=== PATIENT | male | born 1950 | race Caucasian/White ===

== ENCOUNTER 2018-01-08 07:50 | Emergency (ER) | payer BC ==
[~2018-01-08] VITALS: Ht 175.3 cm; Wt 83.9 kg
[2018-01-08 09:02] LABS: HEMATOCRIT 42.3 % (38.0-50.0); HEMOGLOBIN 14.9 G/DL (12.5-16.6); MCH 31.9 PG (29.0-34.0); MCHC 35.2 G/DL (30.0-36.0); MCV 90.6 FL (86-99); PLATELET COUNT 148 K/uL (156-360); RBC DIS.WIDTH-SD 39.8 % (39-53); RED BLOOD COUNT 4.67 M/uL (4.00-5.50); WHITE BLOOD COUNT 16.5 K/uL (4.1-10.2)
[2018-01-08 09:12] LABS: CHLORIDE 102 mEq/L (99-109); POTASSIUM 3.9 mEq/L (3.7-5.4); SODIUM 137 mEq/L (136-147)
[2018-01-08 09:15] LABS: GLUCOSE 119 mg/dL (70-99); TOTAL PROTEIN 6.7 g/dL (6.4-8.3)
[2018-01-08 09:16] LABS: TOTAL BILIRUBIN 1.1 mg/dL (0.0-1.0)
[2018-01-08 09:18] LABS: ALKALINE PHOSPHATASE 51 IU/L (3-129); CREATININE 0.9 mg/dL (0.6-1.3); GFR ESTIMATE (CALCULATED) > 59 mL/min/ (58.99-99999)
[2018-01-08 09:19] LABS: UREA NITROGEN (BUN) 18 mg/dL (9-23)
[2018-01-08 09:20] LABS: AST (GOT) 11 IU/L (2-34); DIRECT BILIRUBIN 0.5 mg/dL (0.0-0.3)
[2018-01-08 09:21] LABS: ALT (GPT) 10 IU/L (3-49)
[2018-01-08 09:22] LABS: LIPASE 5 U/L (1.0-51.0)
[2018-01-08 09:23] LABS: TROP-I INTERPRETATION NEGATIVE; TROPONIN-I < 0.01 ng/mL (0.0-0.30)
[2018-01-08 09:30] LABS: APPEARANCE CLEAR ((CLEAR)); BILIRUBIN NEGATIVE; BLOOD NEGATIVE; COLOR YELLOW ((YELLOW)); GLUCOSE (STRIP) NEGATIVE; KETONES 80; LEUKOCYTES NEGATIVE; NITRITE NEGATIVE; PROTEIN (STRIP) 30; SPECIFIC GRAVITY 1.032 (1.000-1.030); UROBILINOGEN 0.2 MG/DL (0.2-1.0)
[2018-01-08 09:54] LABS: MONOSPOT (MONONUCLEOSIS SEROL) NEGATIVE
[2018-01-08] MEDS ORDERED: LEVAQUIN750 MG PO (10:13)
[2018-01-08 10:56] VITALS: BP 146/75
== END 2018-01-08 10:58 | disposition home or self-care (01) ==
LOC: EME 07:50
PROVIDERS: Emergency Medicine
DX: J18.9 Pneumonia, unspecified organism (principal); J44.0 Chronic obstructive pulmonary disease with (acute) lower respiratory infection; R50.9 Fever, unspecified; Z87.891 Personal history of nicotine dependence
CPT/HCPCS: 71045; 80048; 80076; 81003; 83605; 83690; 84484; 85027; 86308; 87040; 87086; 99281; 99285